=== PATIENT | female | born 1995 | race Native Hawaiian/Other Pacific Islander ===

== ENCOUNTER 2021-10-09 01:13 | Emergency (ER) | payer SELFPAY ==
[2021-10-09] MEDS ORDERED: ACETAMINOPHEN 500 MG TAB PO ONE (01:21)
[2021-10-09] MEDS ORDERED: LIDOCAINE (1%) 10 MG/1 ML VIAL 20 ML MDV INFILTRATI ONE (01:21)
--- NOTE | 2021-10-09 01:56 | XRay Report ---
Right femur 4 views INDICATION: Laceration FINDINGS: Right femoral head is well-seated in the acetabulum. Femoral shaft appears normal. Lacerati on overlying the distal thigh anteriorly. No definite foreign body Signer Name: James Fagan MD Signed: 10/09/2021 1:52 AM Workstation Name: [id number]
--- NOTE | 2021-10-09 02:07 | Emergency Department Report ---
ED Fall HPI - General Chief Complaint: Wound/Laceration Stated Complaint: CUT ON RIGHT LEG Source: patient Mode of arrival: Ambulatory - History of Present Illness Initial Comments: Patient is a A0 26-year-old female who is approximately 6 to 8 weeks gestation, and with past medical history of anxiety and depression presents to the ED with complaint of acute onset persistent anterior distal right thigh bleeding laceration wound after she slipped in the house and fell on a glass table breaking the glass table, and in the process sustained laceration on anterior distal right thigh about 1 hour prior to arrival in the ED. Patient stated that the bleeding is not controlled at this time. Patient denies dizziness, syncope, nausea and vomiting, numbness and tingling or weakness of right leg, hip pain, head or neck injuries, chest pain or shortness of breath, abdominal pain or vaginal bleeding. MD Complaint: fall, other (Anterior right thigh laceration) -: Sudden, hour(s) (1) Fall From: standing When Fall Occurred: 1 hour [employer] Fall Witnessed: yes, by family Place Fall Occurred: home Loss of Consciousness: none Prolonged Down Time?: no Symptoms Prior to Fall: none Location: other (RIGHT THIGH) Location - Extremities: Right: Thigh (Anterior distal right thigh laceration wound) Severity: severe Severity scale (0 -10): 8 Quality: sharp, aching Context: tripped/slipped - Related Data Previous Rx's Medication Instructions Recorded Last Taken Type Acetaminophen/Codeine [Tylenol 1 - 2 tab PO Q6H PRN #12 tab 10/09/21 Unknown Rx /Codeine # 3 tab] cephALEXin [Keflex] 500 mg PO Q8HR #30 cap 10/09/21 Unknown Rx Allergies Allergy/AdvReac Type Severity Reaction Status Date / Time No Known Allergies Allergy Unverified 10/09/21 01:20 ED Review of Systems ROS: Stated complaint: CUT ON RIGHT LEG Other details as noted in HPI Constitutional: denies: chills, fever Eyes: denies: eye pain, eye discharge, vision change ENT: denies: ear pain, throat pain Respiratory: denies: cough, shortness of breath, wheezing Cardiovascular: denies: chest pain, palpitations Endocrine: no symptoms reported Gastrointestinal: denies: abdominal pain, nausea, diarrhea Genitourinary: denies: urgency, dysuria, frequency, hematuria, discharge, abnormal menses, dyspareunia Musculoskeletal: arthralgia (distal right thigh bleeding laceration). denies: back pain, joint swelling Skin: other (Bleeding distal anterior right thigh laceration). denies: rash, lesions Neurological: denies: headache, weakness, paresthesias Psychiatric: anxiety. denies: depression, auditory hallucinations, visual aiken llucinations, homicidal thoughts, suicidal thoughts Hematological/Lymphatic: denies: easy bleeding, easy bruising ED Past Medical Hx - Past Medical History Previous Medical History?: No Hx Psychiatric Treatment: Yes (anxiety) - Surgical History Past Surgical History?: No - Medications Home Medications: Home Medications Medication Instructions Recorded Confirmed Last Taken Type Acetaminophen/Codeine [Tylenol 1 - 2 tab PO Q6H PRN #12 tab 10/09/21 Unknown Rx /Codeine # 3 tab] cephALEXin [Keflex] 500 mg PO Q8HR #30 cap 10/09/21 Unknown Rx ED Physical Exam - General Limitations: No Limitations General appearance: alert, in no apparent distress - Head Head exam: Present: atraumatic, normocephalic, normal inspection - Eye Eye exam: Present: normal appearance, PERRL, EOMI Pupils: Present: normal accommodation - ENT ENT exam: Present: normal exam, normal orophraynx, mucous membranes moist, TM's normal bilaterally, normal external ear exam - Neck Neck exam: Present: normal inspection, full ROM. Absent: tenderness, meningismus, lymphadenopathy - Respiratory Respiratory exam: Present: normal lung sounds bilaterally. Absent: respiratory distress, wheezes, rales, rhonchi, chest wall tenderness, accessory muscle use, decreased breath sounds - Cardiovascular Cardiovascular Exam: Present: regular rate, normal rhythm, normal heart sounds. Absent: systolic murmur, diastolic murmur, rubs, gallop - GI/Abdominal GI/Abdominal exam: Present: soft, normal bowel sounds. Absent: tenderness, guarding, hyperactive bowel sounds, hypoactive bowel sounds, organomegaly, mass - Extremities Exam Extremities exam: Present: normal inspection, full ROM, tenderness (Palpable distal anterior right thigh tenderness due to a bleeding 7 cm laceration wound), normal capillary refill. Absent: pedal edema, joint swelling, calf tenderness - Back Exam Back exam: Present: normal inspection, full ROM. Absent: tenderness, CVA tenderness (R), CVA tenderness (L), muscle spasm, paraspinal tenderness - Neurological Exam Neurological exam: Present: alert, oriented X3, CN II-XII intact, normal gait, reflexes normal - Psychiatric Psychiatric exam: Present: normal affect, normal mood - Skin Skin exam: Present: warm, dry, intact, normal color, other (Bleeding 7 cm laceration wound on anterior distal right thigh with localized tenderness). Absent: rash ED Course Vital Signs 10/09/21 05:13 Temperature 98 F Pulse Rate 86 Respiratory 18 Rate Blood Pressure 143/85 [Right] O2 Sat by Pulse 98 Oximetry - Laceration /Wound Repair Right Anterior Distal Thigh Wound Location: lower extremity (Distal anterior right thigh laceration wound) Wound Length (cm): 7 Wound's Depth, Shape: into muscle, linear Wound Explored: contaminated Irrigated w/ Saline (ccs): 300 Betadine Prep?: Yes Anesthesia: 1% Lidocaine Volume Anesthetic (ccs): 14 Wound Debrided: extensive Wound Repaired With: sutures Suture Size/Type: 3:0, proline Sterile Dressing Applied?: Yes Progress: The wound was cleaned extensively with normal saline and Betadine solutions. Lidocaine 1% solution was injected around the wound for local anesthesia. When anesthesia was fully achieved, the wound was sutured per protocol with Prolene 3-0 sutures. Patient tolerated the procedure well. The wound was then cleaned and dressed appropriately and the patient was discharged home on medications. On reevaluation, the distal pulses are palpable, and patient is neurovascularly intact. Patient was therefore discharged home on pain medications and prophylactic antibiotics and advised to follow-up with her primary care physici an in 7 to 10 days for reevaluation or return to the ED immediately if symptoms get worse. Patient was otherwise advised to return to the ED or to her primary care physician in 12 to 14 days for suture removal. ED Medical Decision Making - Radiology Data Radiology results: report reviewed, image reviewed [facility] [address] [place] [address] XRay Report Signed Patient: ZEINA MORAN MR#: [id number] : 1995 Acct:[id number] Age/Sex: 26 / F ADM Date: 10/09/21 Loc: ED Attending Dr: Ordering Physician: SEAN BURDEN DO Date of Service: 10/09/21 Procedure(s): XR femur 2+V RT Accession Number(s): [id number] cc: DO Maria Luz MARQUEZ Time In Minutes: Right femur 4 views INDICATION: Laceration FINDINGS: Right femoral head is well-seated in the acetabulum. Femoral shaft appears normal. Laceration overlying the distal thigh anteriorly. No definite foreign body Signer Name: James Fagan MD Signed: 10/09/2021 1:52 AM Workstation Name: [id number] Transcribed By: CORNELL Dictated By: CARLO FAGAN MD Electronically Authenticated By: CARLO FAGAN MD Signed Date/Time: 10/09/21151 DD/ 0 TD/TT: - Medical Decision Making This is a A0 26-year-old female who is approximately 6 to 8 weeks gestation, and with past medical history of anxiety and depression presents to the ED with complaint of acute onset persistent anterior distal right thigh bleeding laceration wound after she slipped in the house and fell on a glass table breaking the glass table, and in the process sustained laceration on anterior distal right thigh about 1 hour prior to arrival in the ED. Patient stated that the bleeding is not controlled at this time. In the ED, patient is alert and oriented x3 and is not in any distress but anxious, crying during the physical exam. Right femur x-ray showed no acute fractures or subluxations or presence of any foreign bodies within the tissues of the distal right thigh. Patient was treated for pain in the ED with Tylenol, and the wound was extensively debrided and cleaned with normal saline and Betadine solutions. Lidocaine 1% solution was used as a local anesthetic. When anesthesia was fully achieved, the wound was sutured per protocol using Prolene 3-0 sutures. Patient tolerated the procedure well. On reevaluation, patient is neurovascularly intact and the distal pulses are palpable. The wound was then dressed appropriately and the patient was discharged home on pain medication and prophylactic antibiotics and advised to return to the ED immediately if symptoms get worse. Patient was otherwise advised to follow-up with a primary care physician in 7 to 10 days for reevaluation. Patient was also advised to return to the ED or to her primary care physician in 12 to 14 days for suture removal. - Differential Diagnosis Leg laceration; puncture wound; leg injury; leg contusion Critical care attestation.: If time is entered above; I have spent that time in minutes in the direct care of this critically ill patient, excluding procedure time. ED Disposition Clinical Impression: Laceration of right thigh without foreign body Qualifiers: Encounter type: initial encounter Qualified Code(s): S71.111A - Laceration without foreign body, right thigh, initial encounter Disposition: HOME / SELF CARE / HOMELESS Is pt being admited?: No Does the pt Need Aspirin: No Condition: Stable Instructions: Laceration Care, Adult, [id number], Sutures, Gregory, or Adhesive Wound Closure, [id number], Sutured Wound Care, [id number] Additional Instructions: Take medication with food, drink plenty of fluids and follow-up with your primary care physician in 7 to 10 days for reevaluation. Return to the ED immediately if symptoms get worse. Otherwise return to the ED or to your primary care physician in 12 to 14 days for suture removal. Prescriptions: cephALEXin [Keflex] 500 mg PO Q8HR #30 cap Acetaminophen/Codeine [Tylenol /Codeine # 3 tab] 1 - 2 tab PO Q6H PRN #12 tab PRN Reason: Pain , Severe (7-10) Referrals: [facility] [Provider Group] - 7-10 days Time of Disposition: 02:48 Print Language: DANISH
[2021-10-09 05:13] VITALS: BP 143/85
== END 2021-10-09 18:45 | disposition home or self-care (01) ==
LOC: ED 01:13
DX: O9A.211 Injury, poisoning and certain other consequences of external causes complicating pregnancy, first trimester (principal); S71.111A Laceration without foreign body, right thigh, initial encounter; Z3A.08 8 weeks gestation of pregnancy; X58.XXXA Exposure to other specified factors, initial encounter; Y93.89 Activity, other specified; Y92.89 Other specified places as the place of occurrence of the external cause; Y99.8 Other external cause status
CPT/HCPCS: 12032; 73552; 99283; J3490